=== PATIENT | female | born 1980 | race African-American/Black ===

== ENCOUNTER 2019-04-21 08:22 | Day surgery (SDC) | payer OTHER ==
[~2019-04-21 08:22] MED LIST: BACITRACIN 50000 UNIT VIAL ONE; CEFAZOLIN SODIUM 1 GM/VIAL ONE; GENTAMICIN SULF 80 MG/2ML INJ ONE; Mastisol Adhesive Liq ONE; NS 0.9% VIAL 20 ML ONE; Ringers Lactate 1,000 ML IV ONE
--- OUTSIDE RECORDS SUMMARY | 2019-04-21 08:23 | XMS REPORT ---
:1980 Author Organization [facility] Address [address] [place] [address] [place] [id number] Care Team Providers Name Role Phone Sharon Nasim Cruz Unavailable Unavailable Yanira Montes Unavailable Unavailable Fareed Portillo Unavailable Unavailable Problems This patient has no known problems. Allergies, Adverse Reactions, Alerts This patient has no known allergies or adverse reactions. Medications This patient has no known medications. Encounters Start End Encounter Admission Attending Care Care Encounter Date/Time Date/Time Type Type Clinicians Facility Department ID 2018-12-03 2018-12-03 Outpatient HENRY Herrera [id number] 09:06:00 09:06:00 Aksa 2018-11-29 2018-11-29 Outpatient HENRY Herrera [id number] 08:56:00 08:56:00 Utsavi 2018-10-26 2018-10-26 Outpatient HENRY Herrera [id number] 10:10:00 10:10:00 Aksavi 2017-11-26 2017-11-26 Outpatient HENRY Herrera [id number] 14:41:00 14:41:00 Utsavi 2017-07-01 2017-07-01 Outpatient HENRY Montes [id number] 12:20:00 12:20:00 Moona 2017-07-01 2017-07-01 Outpatient HENRY Herrera [id number] 12:18:00 12:18:00 Utsavi 2017-06-16 2017-06-16 Outpatient HENRY Herrera [id number] 17:58:00 17:58:00 Utsavi 2017-06-10 2017-06-10 Outpatient HENRY Portillo [id number] 13:53:00 13:53:00 Gene 2017-03-13 2017-03-13 Outpatient HENRY Herrera [id number] 13:45:00 13:45:00 [facility] 2017-03-04 2017-03-04 Outpatient HENRY Herrera [id number] 10:04:00 10:04:00 [facility]
[2019-04-21] MEDS ORDERED: SCOPOLAMINE HYDROBROMIDE PATCH TD ONE (08:33)
[2019-04-21] MEDS ORDERED: PROPOFOL 200 MG/20 ML VIAL IV ONE (08:37)
[2019-04-21] MEDS ORDERED: MIDAZOLAM HCL 2 MG/2 ML INJ ONE (08:37)
[2019-04-21] MEDS ORDERED: LIDOCAINE 2% MPF 5 ML VIAL ONE (08:39)
[2019-04-21] MEDS ORDERED: CEFAZOLIN/SWI 1gm 1 GM/10 ML SYR ONE (08:39)
[2019-04-21] MEDS ORDERED: GLYCOPYRROLATE 0.2 MG/ML SYR ONE (08:39)
[2019-04-21] MEDS ORDERED: FENTANYL CITR 250 MCG/5 ML ONE (08:40)
[2019-04-21] MEDS ORDERED: ROCURONIUM 50 MG/5 ML VIAL IV ONE ×2 (08:41→11:05)
[2019-04-21] MEDS ORDERED: dexAMETHasone 10 MG/ML VIAL ONE (08:43)
[2019-04-21] MEDS ORDERED: ONDANSETRON 4 MG/2 ML VIAL ONE ×3 (08:43→15:05)
[2019-04-21] MEDS ORDERED: KETOROLAC 30 MG/ML INJ ONE (08:44)
[2019-04-21 08:45] LABS: Specific Gravity 1.015 (1.005-1.030)
[2019-04-21] MEDS ORDERED: MORPHINE 10 MG/ML VIAL ONE (10:59)
[2019-04-21] MEDS ORDERED: Phenylephrine HCl 10 MG/ML 1 ML VIAL ONE (11:12)
[2019-04-21] MEDS ORDERED: MEPERIDINE HCL 25 MG/0.5 ML ONE (12:34)
[2019-04-21] MEDS: Ringers Lactate 1,000 ML IV ONE ×2 (12:51→12:52)
[2019-04-21] MEDS ORDERED: FENTANYL CITR 100 MCG/2 ML ONE (13:08)
[2019-04-21 15:33] VITALS: TEMP 98.1
[2019-04-21] MEDS ORDERED: CODEINE 30MG/APAP 300MG TAB ONE (15:42)
[2019-04-21 16:31] VITALS: BP 94/48; O2SAT 100
--- NOTE | 2019-04-22 01:01 | OP ---
Surgeon: Bridger Colbert MD Preoperative Diagnosis: Ruptured left breast implant and breast descent. Postoperative Diagnosis: Ruptured left breast implant and breast descent. Procedure Performed: Explantation of lift. Anesthesia: General. Procedure In Detail: After satisfactory induction of general anesthesia, the chest was prepped with DuraPrep, dry sterile drapes applied in the usual manner. A 40 mm template used to outline the right and left areola. Then, a transverse and curvilinear incisions were made, intervening skin was de-ep ithelialized with a dermabrader or EpiCut. This was done on both sides. Then, the flap was elevated from the right breast. It was 1 cm thickness elevated toward sternum, clavicle, and anterior axilla ry line. Retropectoral dissection was done. The implant was removed. It was then textured __ intact on the right. Then the inferior incision was made, the de-epithelialized tissue was formed with a cone with 2-0 PDS sutures and straps were elevated at 12 o'clock, 1:30, and 3 o'clock positio n. Straps were then woven in and out of the pectoralis major muscle, back to the base of cone, back to pectoralis major muscle, back to the base of cone. This was done from the 12 o'clock and 130 stra ps. The 3 o'clock strap was sewn over the sternum with 2-0 Ethibond at 3 o'clock position. Left arias e was done in mirror-image manner. The only difference is the implant had ruptured. The wounds were stapled shut and the patient was sat up and checked for symmetry the patient was placed s upine, then the wound was irrigated with antibiotic solution and then closed with 3-0 Vicryl subcutan eous, 3-0 PDS running subcuticular tied from lateral to medial and medial to lateral, tied in the sveta tical meridian of the breast. This was done on both sides and then the patient was sat up. Site for nipple-areolar complex was marked out. Tissue was cored out template and then sewn with interrupted 4-0 PDS followed by 4-0 PDS running subcuticular. Dressings consist of tincture of benzo in, Steri-Strips, 5 x 5s, fluffs, and Khalif wrap. The patient tolerated the procedure well. The amoun t removed from the right breast was 18 g, left breast 16 g. Implant weighed 330 g on right, 480 g on the left as this was ruptured. They were both textured implants. OLGA LIDIA Voice ID: [id number] Report ID: [id number]
== END 2019-04-21 16:38 | disposition home or self-care (01) ==
LOC: OR 08:22
PROVIDERS: ATTEND Specialist
PROC: 0HPT0JZ Removal of Synthetic Substitute from Right Breast, Open Approach (ICD-10-PCS; 2019-04-21)
PROC: 0H0V0ZZ Alteration of Bilateral Breast, Open Approach (ICD-10-PCS; 2019-04-21)
PROC: 0HPU0JZ Removal of Synthetic Substitute from Left Breast, Open Approach (ICD-10-PCS; principal; 2019-04-21 09:00)
DX: T85.49XA Other mechanical complication of breast prosthesis and implant, initial encounter (principal); Z45.811 Encounter for adjustment or removal of right breast implant; N64.81 Ptosis of breast
CPT/HCPCS: 19330; 19328; 19316; 81025; 88305; J2704; J2370; J1580; J2250; J3010 ×2; J1100; J2175; J0690 ×2; J7120 ×3; J2405 ×3

== ENCOUNTER 2020-09-20 08:12 | Day surgery (SDC) | payer OTHER ==
[2020-09-20] MEDS ORDERED: Ringers Lactate 1,000 ML IV ONE ×2 (09:11→12:29)
[2020-09-20] MEDS ORDERED: CEFAZOLIN/SWI 1gm 1 GM/10 ML SYR ONE (09:11)
[2020-09-20] MEDS ORDERED: SCOPOLAMINE HYDROBROMIDE PATCH TD ONE (09:14)
[2020-09-20] MEDS ORDERED: EPINEPHRINE/PF 1 MG/ML AMP ONE (09:41)
[2020-09-20] MEDS ORDERED: NA CHLORIDE 0.9% 2,000 ML ONE (09:41)
[2020-09-20] MEDS ORDERED: propofoL 200 MG/20 ML VIAL IV ONE (10:42)
[2020-09-20] MEDS ORDERED: ONDANSETRON 4 MG/2 ML VIAL ONE ×2 (10:43→11:00)
[2020-09-20] MEDS ORDERED: LIDOCAINE 1% MPF 5 ML VIAL ONE (10:43)
[2020-09-20] MEDS ORDERED: MIDAZOLAM HCL 2 MG/2 ML INJ ONE (10:43)
[2020-09-20] MEDS ORDERED: NS 0.9% VIAL 10 ML ONE (10:43)
[2020-09-20] MEDS ORDERED: dexAMETHasone 10 MG/ML VIAL ONE (10:43)
[2020-09-20] MEDS ORDERED: FENTANYL CITR 250 MCG/5 ML ONE (10:43)
[2020-09-20] MEDS ORDERED: VECURONIUM 10 MG/VIAL IV ONE (10:44)
[2020-09-20] MEDS ORDERED: LANO/MINERAL OIL/PETRO 3.5 GM ONE (11:34)
[2020-09-20] MEDS ORDERED: Mastisol Adhesive Liq ONE (12:35)
[2020-09-20] MEDS ORDERED: GLYCOPYRROLATE 0.2 MG/ML SYR ONE (12:36)
[2020-09-20] MEDS ORDERED: KETOROLAC 30 MG/ML INJ ONE (12:36)
[2020-09-20] MEDS ORDERED: NEOSTIGMINE 1 MG/ML -5 ML ONE (12:39)
[2020-09-20] MEDS: MEPERIDINE HCL 25 MG/ML SYR ONE ×2 (13:01→13:10)
[2020-09-20] MEDS ORDERED: CODEINE 30MG/APAP 300MG TAB ONE (14:45)
[2020-09-20 14:57] VITALS: BP 105/56; TEMP 97; O2SAT 100
--- NOTE | 2020-09-20 22:50 | OP ---
Surgeon: Bridger Colbert MD Preoperative Diagnosis: Scar status post breast lift and hypomastia. Postoperative Diagnosis: Scar status post breast lift and hypomastia. Procedure: Scar revision and liposuction with fat transfer to the breast. Anesthesia: General Procedure In Detail: After satisfactory induction of general anesthesia, the patient was prepped from the chin to the knees with DuraPrep, dry sterile drapes were applied in usual manner. Then, blade was used to make incision over the anterior thigh and lateral thigh . The right and left lateral thighs had 500 cc in. Right and left anterior thighs had 400 cc in. 180 cc removed from the right and from the left lateral thigh and 325 from the anterior thigh. The patient then had the cephalad wounds closed with 4-0 PDS and then fat was allowed to gravitate. Scalpel was used to excise the scar on inframammary fold of both breasts. Electrocautery was used for hemostasis. Then, the wound was closed with 3-0 Vicryl. At this point, the fat was then transferred 200 cc of right breast, 200 of left breast. Then the wound was closed with running 3-0 PDS suture from lateral to medial, medial to lateral, and tied in the vertical meridian of breast. After both sides were done, tincture of benzoin, Steri- Strips were applied. Liposuction garment, fluffs, and Khalif wrap. The patient tolerated procedure well and returned to Recovery. MATTIE/AUDREY Voice ID: [id number] Report ID: [id number] MARGO
== END 2020-09-20 14:52 | disposition home health service (06) ==
LOC: OR 08:12
PROVIDERS: ATTEND Specialist
PROC: 0H0V07Z Alteration of Bilateral Breast with Autologous Tissue Substitute, Open Approach (ICD-10-PCS; 2020-09-20)
PROC: 0HB5XZZ Excision of Chest Skin, External Approach (ICD-10-PCS; 2020-09-20)
PROC: 0J0M3ZZ Alteration of Left Upper Leg Subcutaneous Tissue and Fascia, Percutaneous Approach (ICD-10-PCS; principal; 2020-09-20 10:00)
PROC: 0J0L3ZZ Alteration of Right Upper Leg Subcutaneous Tissue and Fascia, Percutaneous Approach (ICD-10-PCS; 2020-09-20 10:00)
DX: L90.5 Scar conditions and fibrosis of skin (principal); E65 Localized adiposity; Z20.822 Contact with and (suspected) exposure to COVID-19
CPT/HCPCS: 15879; 15771; 15772 ×7; 11406; 81025; J2704; J0171; J2250; J3010; J1100; J2175; J2710; J0690; J7120 ×2; J7030; J2405 ×2